=== PATIENT | male | born 1980 | race Caucasian/White ===

== ENCOUNTER 2020-08-28 16:20 | Emergency (ER) | payer OTHER ==
[~2020-08-28] VITALS: Ht 177.8 cm; Wt 87.5 kg
== END 2020-08-28 19:03 | disposition home or self-care (01) ==
LOC: ER 16:20
DX: R07.0 Pain in throat (principal)

== ENCOUNTER → 2020-10-13 | Emergency (ER) | payer OTHER | END | disposition left against medical advice (07) | LOC: ER 17:38 | DX: Z53.20 Procedure and treatment not carried out because of patient's decision for unspecified reasons (principal) ==